=== PATIENT | female | born 1980 | race Caucasian/White ===

== ENCOUNTER → 2016-09-06 | Outpatient (CLI) | payer MEDICARE, MEDICAID ==
--- NOTE | 2016-09-07 12:47 | EEG PRO FEE REPORT ---
EEG INTERPRETATION PATIENT NAME: JESUS ENCISO ROOM#: ORDER#: [id number] DATE OF STUDY: 09/06/2016 : 1980 REFERRING MD: JUSTIN FELIZ M.D. DIAGNOSIS: Symptomatic epilepsy REPORT This is a 16 channel EEG recording with a channel of EKG done during wakefulness, photic stimulation, and early stages of sleep. The background activity is to 8-9 cycles per second, well formed and reactive alpha best seen in the posterior electrodes along with beta 18-22 cycles per second, intermittent, nonlocalized or sustained slower forms also seen. Photic stimulation was administered did not evoke any abnormal discharges. In the early stages of sleep, more generalized slowing and other early stages of sleep forms seen. There were no epileptic form discharges. IMPRESSION This EEG is within normal limits. INTERPRETING PHYSICIAN: TASHI JACKSON M.D. /: MTEFJOSEPH TT: [id number] ID: [id number] /: [id number] TD: [id number] JOB: [id number] cc:Trae CORTEZ M.D. >
== END ==
LOC: NEURO 08:08
PROVIDERS: ATTEND Pediatrics
DX: G40.209 Localization-related (focal) (partial) symptomatic epilepsy and epileptic syndromes with complex partial seizures, not intractable, without status epilepticus (principal)
CPT/HCPCS: 95819

== ENCOUNTER 2017-04-19 19:14 | Emergency (ER) | payer MEDICARE, MEDICAID ==
[2017-04-19] MEDS ORDERED: LACOSAMIDE 100 MG TABLET PO ONE (20:09)
[2017-04-19] MEDS ORDERED: TOPIRAMATE 100 MG TABLET PO ONE (20:09)
--- NOTE | 2017-04-19 20:17 | ER Document Report ---
ED General - General Chief Complaint: Probable Seizure Stated Complaint: POSSIBLE SEIZURE Time Seen by Provider: 04/19/17 19:19 Notes: Patient is a 36-year-old female with a past medical history of epilepsy, developmental delay who presents after having a generalized tonic-clonic seizure just prior to arrival. Patient has been taking both the Vimpat and topiramate as directed, she has not had any missed doses. Apparently she was watching television wonderful and noticed that she became unresponsive and then had a 3-4 minute episode of generalized tonic-clonic motion. She was postictal thereafter. She did not fall or injure herself during the seizure. Her last seizure was in November of this year. She has not notified her neurologist yet about today's episode. She denies any localizing infectious symptoms, headache , neck pain or altered mental status. She notes that she otherwise feels normal at this time and her family reports that she is to her baseline. TRAVEL OUTSIDE OF THE [place] IN LAST 30 DAYS: No - Related Data Allergies/Adverse Reactions: No Known Allergies Allergy (Unverified 04/19/17 19:43) Home Medications: Current Home Medications Lacosamide [Vimpat 100 mg Tablet] 2 tab PO QHS 04/19/17 [History] Lacosamide [Vimpat 50 mg Tablet] 1 tab PO QAM 04/19/17 [History] Topiramate [Topiramate] 250 mg PO BID 04/19/17 [History] Past Medical History - General Information source: Patient - Social History Smoking Status: Never Smoker Frequency of alcohol use: None Drug Abuse: None Lives with: Family Family History: Reviewed & Not Pertinent Patient has suicidal ideation: No Patient has homicidal ideation: No Neurological Medical History: Reports: Hx Seizures Renal/ Medical History: Denies: Hx Peritoneal Dialysis Psychiatric Medical History: Reports: Hx Bipolar Disorder Review of Systems - Review of Systems Notes: Constitutional: Negative for fever. HENT: Negative for sore throat. Eyes: Negative for visual changes. Cardiovascular: Negative for chest pain. Respiratory: Negative for shortness of breath. Gastrointestinal: Negative for abdominal pain, vomiting or diarrhea. Genitourinary: Negative for dysuria. Musculoskeletal: Negative for back pain. Skin: Negative for rash. Neurological: Negative for headaches, weakness or numbness. 10 point ROS negative except as marked above and in HPI. Physical Exam - Vital signs Vitals: Resp Pulse Ox 16 100 04/19/17 19:47 04/19/17 19:47 Interpretation: Normal Notes: PHYSICAL EXAMINATION: GENERAL: Well-appearing, well-nourished and in no acute distress. HEAD: Atraumatic, normocephalic. EYES: Pupils equal round and reactive to light, extraocular movements intact, sclera anicteric, conjunctiva are normal. ENT: nares patent, oropharynx clear without exudates. Moist mucous membranes. NECK: Normal range of motion, supple without lymphadenopathy LUNGS: Breath sounds clear to auscultation bilaterally and equal. No wheezes rales or rhonchi. HEART: Regular rate and rhythm without murmurs ABDOMEN: Soft, nontender, normoactive bowel sounds. No guarding, no rebound. No masses appreciated. EXTREMITIES: Normal range of motion, no pitting or edema. No cyanosis. NEUROLOGICAL: Face symmetric. Tongue protrudes midline. Extraocular motions intact. Pupils are 2 mm and equally reactive. Normal speech, normal gait. 5 out of 5 strength in both the distal and proximal upper and lower extremities bilaterally. Sensation is grossly intact throughout. Finger to nose testing normal. Pronator drift normal. PSYCH: Normal mood, normal affect. SKIN: Warm, Dry, normal turgor, no rashes or lesions noted. Course - Re-evaluation Re-evalutation: 04/19/17 20:16 Presentation of well-appearing patient after having a seizure. Patient has a known history of seizures. No obvious trigger for today's episode. The patient has returned to baseline without intervention. No focal neurologic deficits. No infectious symptoms, vital sign abnormalities, or evidence of trauma. No indication for laboratories or imaging based on reassuring evaluation and known history of seizures. The patient will be discharged home with recommendations for close follow-up with primary care as well as their neurologist. Return precautions have been reviewed and patient has verbalized understanding. - Vital Signs Vital signs: Temp Pulse Resp BP Pulse Ox 16 114/77 100 04/19/17 20:01 04/19/17 20:00 04/19/17 20:01 Discharge - Discharge Clinical Impression: Epileptic seizure Qualifiers: Epilepsy type: unspecified Intractability: not intractable Status epilepticus: without status epilepticus Qualified Code(s): G40.909 - Epilepsy, unspecified, not intractable, without status epilepticus Condition: Good Disposition: HOME, SELF-CARE Additional Instructions: Today you had a seizure. It is very important that you do not engage in any activities that could result in severe injury should you have a seizure. Specifically, do not drive a vehicle, go into a body of water, take a bath, climb ladders, or operate any heavy machinery until you have been cleared by your neurologist. Please return to the ED immediately if you have multiple seizures close together, develop a severe headache, weakness, numbness, difficulty speaking, have a seizure in which you do not return to normal within 1 hour of the seizure, or have any other symptoms that are concerning to you.
[2017-04-19 20:24] VITALS: BP 114/77
== END 2017-04-19 20:36 | disposition home or self-care (01) ==
LOC: ER 19:14
DX: G40.909 Epilepsy, unspecified, not intractable, without status epilepticus (principal); Z79.899 Other long term (current) drug therapy
CPT/HCPCS: 99284; A9270 ×2; J3490